=== PATIENT | female | born 1975 | race Caucasian/White ===

== ENCOUNTER 2018-05-02 12:44 | Emergency (ER) | payer OTHER ==
--- NOTE | 2018-05-02 15:31 | EDPHY ---
H & P Smoking Status: Never smoked Time Seen by Provider: 05/02/18 14:01 HPI/ROS: CHIEF COMPLAINT: Scalp laceration HISTORY OF PRESENT ILLNESS: 42-year-old female presents to the emergency department with scalp laceration. The patient was at home just prior to arrival and tripped over something in the laundry room and fell and hit the left side of her head against the chest freezer. She does not think that she lost consciousness. She describes diffuse headache and still feels out of it. She also describes numbness and altered sensation to the left side of her face. She denies neck or back pain. Denies chest pain or difficulty breathing. Denies abdominal pain. Denies injury to upper or lower extremities. REVIEW OF SYSTEMS: Constitutional: No fever, no chills. Eyes: No double or blurry vision. ENT: No sore throat. Respiratory: No cough, no shortness of breath. Cardiac: No chest pain. Gastrointestinal: No abdominal pain, vomiting or diarrhea. Genitourinary: No dysuria. Musculoskeletal: No neck or back pain. Skin: Scalp laceration as above. No rashes. Neurological: headache. (Jennifer Sidhu) Past Medical/Surgical History: x2 (Jennifer Sidhu) Social History: (Jennifer Sidhu) Physical Exam: General Appearance: Alert, no distress. Mentating normally and answering questions appropriately. Eyes: Pupils equal and round. Extraocular motions are all intact. ENT: Mouth: Mucous membranes moist. Respiratory: No wheezing, rhonchi, or rales, lungs are clear to auscultation. Cardiovascular: Regular rate and rhythm. Gastrointestinal: Abdomen is soft and nontender, no masses, no rebound or guarding, bowel sounds normal. Neurological: Alert and oriented x 3, cranial nerves II through XII grossly intact however has slight decreased sensation to the left side of her face compared to the right. Skin: 2 cm left parietal scalp laceration. No evidence of depressed skull fracture. Diffusely tender to palpate. Warm and dry, no rashes. Musculoskeletal: Nontender to palpate along the cervical, thoracic or lumbar spine. Neck is supple. Extremities: Full range of motion and no peripheral edema. Psychiatric: Patient is oriented X 3, there is no agitation. (Jennifer Sidhu) Constitutional: Initial Vital Signs Temperature (C) 37.4 C 05/02/18 12:49 Heart Rate 82 05/02/18 12:49 Respiratory Rate 18 05/02/18 12:49 Blood Pressure 125/75 H 05/02/18 12:49 O2 Sat (%) 99 05/02/18 12:49 O2 Delivery Mode Room Air Allergies/Adverse Reactions: No Known Allergies Allergy (Unverified 05/02/18 12:49) Home Medications: Medication Instructions Recorded Effexor Xr 05/02/18 Medical Decision Making - Diagnostics Imaging: Discussed imaging studies w/ mail caller Radiologist Procedures: Laceration repair. Verbal consent was obtained from the patient. The 2 cm laceration on the left parietal scalp was anesthetized using 1% lidocaine with epinephrine. The wound was irrigated with saline, draped and explored to its base with a gloved finger. There were no deep structures involved. The wound was repaired with 5 gloria. The wound repair was simple. The procedure was performed by myself. ( Jennifer Sidhu) ED Course/Re-evaluation: 42-year-old female presents to the emergency department with head injury. The patient did not lose consciousness but describes diffuse headache and feels" like I am under water". I discussed the pros and cons of CT imaging of her brain including radiation exposure and the patient agrees with CT scan. CT imaging of the brain reveals no intracranial bleeding or skull fracture. Scalp laceration was repaired, see procedure note. Patient was given closed-head injury precautions. (Jennifer Sidhu) Differential Diagnosis: Head injury including but not limited to concussion, skull fracture, intraparenchymal contusion, subarachnoid, subdural and epidural hematoma. (Jennifer Sidhu) Other Provider: The patient was evaluated and managed by the Physician Manager Rn. My co- signature indicates that I have reviewed this chart and I agree with the findings and plan of care as documented. I am the secondary supervising physician. (Rubina Beltran) Departure - Departure Disposition: Home, Routine, Self-Care Clinical Impression: Scalp laceration, Head injury Condition: Good Instructions: Care For Your Stitches (ED), Laceration (ED), Head Injury (ED), Acute Wounds (ED) Additional Instructions: Wound Care Follow-Up: Removal of sutures in 7 days. Suture removal is complimentary in uncomplicated cases. Infection or abnormal findings would require reevaluation by the MD. In that case, you may be billed. Keep wound dry, clean and protected. Ibuprofen 400 mg every 8 hr as needed for pain. Cool compresses to help reduce swelling. Referrals: Carlos Daly DO [Doctor of Osteopathy] - 2-3 days, if not improved (Primary care provider risk control product liability director)
[2018-05-09 14:54] VITALS: BP 122/67
== END 2018-05-02 15:40 | disposition home or self-care (01) ==
PROC: 0HQ0XZZ Repair Scalp Skin, External Approach (ICD-10-PCS; principal; 2018-05-02)
DX: S01.01XA Laceration without foreign body of scalp, initial encounter (principal); W01.0XXA Fall on same level from slipping, tripping and stumbling without subsequent striking against object, initial encounter; Y92.018 Other place in single-family (private) house as the place of occurrence of the external cause; Y99.8 Other external cause status